=== PATIENT | male | born 1935 | race Caucasian/White ===

== ENCOUNTER 2018-05-08 16:09 | Emergency (ER) | payer BC ==
[2018-05-08] MEDS ORDERED: FENTANYL 25 MCG/HR PATCH TD ONE (17:27)
[2018-05-08] MEDS ORDERED: CLONIDINE HCL 0.1 MG TABLET ONE (17:28)
== END 2018-05-08 18:16 | disposition home or self-care (01) ==
LOC: EDH 16:09
DX: G89.29 Other chronic pain (principal); M54.5 Low back pain; I10 Essential (primary) hypertension; E78.5 Hyperlipidemia, unspecified; Z88.0 Allergy status to penicillin; Z88.2 Allergy status to sulfonamides; Z88.8 Allergy status to other drugs, medicaments and biological substances; Z88.7 Allergy status to serum and vaccine; Z85.22 Personal history of malignant neoplasm of nasal cavities, middle ear, and accessory sinuses